=== PATIENT | male | born 1960 | race Caucasian/White ===

== ENCOUNTER 2019-06-04 06:37 | Day surgery (SDC) | payer OTHER ==
[~2019-06-04] VITALS: Ht 182.9 cm; Wt 81.6 kg
[2019-06-04] VITALS (9 sets, daily range): BP systolic 116–129; BP diastolic 71–81
[~2019-06-04 06:37] MED LIST: FLOMAX0.4 MG ORAL; MULTIVITAMINS1 EAC2 ORAL; VITAMIN C500 M1 ORAL
--- NOTE | 2019-06-04 07:45 | Short Stay Surgery H&P ---
History of Present Illness History of Present Illness Chief Complaint Rectal bleeding/abdominal pains/constipations/GERDs and history of colitis HPI Galileo Rodrigues is a 58 year old male who was admitted on for Heartburn, Abdominal Pain/history of colitis and rectal bleeding Patient History Allergies: Coded Allergies: PENICILLINS (Verified Allergy, Severe, 06/04/19) RASH SULFA (SULFONAMIDE ANTIBIOTICS) (Verified Allergy, Severe, 06/03/19) PT WAS HOSPITALIZED-CANNOT REMEMBER REACTION PAST MEDICAL HISTORY: (1) Ulcerative colitis (2) History of knee surgery (3) History of umbilical hernia repair (4) History of inguinal hernia repair Medication History Scheduled Ascorbic Acid* (Vitamin C*), 500 MG ORAL DAILY, (Reported) Multivitamins* (Multivitamins*), 1 TAB ORAL DAILY, (Reported) Tamsulosin HCl (Flomax), 0.8 MG ORAL DAILY, (Reported) Review of Systems Cardiovascular: Reports: no symptoms Respiratory: Reports: no symptoms Skeletal: Reports: trauma Gastrointestinal: Reports: gastro esophageal reflux disease Genitourinary: Reports: BPH Neurologic: Reports: no symptoms Endocrine: Reports: no symptoms Hematologic: Reports: no symptoms Physical Exam Vital Signs Last Vital Signs Date Time Temp Pulse Resp B/P (MAP) Pulse Ox O2 Delivery O2 Flow Rate FiO2 06/04/19 07:13 97.0 49 18 129/80 96 Room Air Skin: normal HENT: normal Heart: normal Lungs: normal Abdomen: abnormal Extremities: normal Genitourinary: normal Plan Plan of Care Upper and lower endoscopy with biopsy. Preop Interventions None. Summary of Findings See the reports. Attestation Are the patient's medical conditions optimized for surgery? Attestation Response: yes Nneka Mckeon MD Jun 04, 2019 07:45
--- NOTE | 2019-06-04 07:46 | Pre-Procedure Note/Attestation ---
Pre-Procedure Note/Attestation Complete Prior to Procedure Planned Procedure: left Procedure Narrative: Examinations of the upper and lower GI. tract with obtaining biopsies. Indications for Procedure Pre-Operative Diagnosis: R/O active colitis/gastriitis/hemorrhoids/tumors of the colon and peptic ulcer Attestation I attest that I discussed the nature of the procedure; its benefits; risks and complications; and alternatives (and the risks and benefits of such alternatives ), prior to the procedure, with the patient (or the patient's legal medical customer service representative). I attest that, if there was a reasonable possibility of needing a blood transfusion, the patient (or the patient's legal medical customer service representative) was given the [place] Department [employer] [facility] standardized written summary, pursuant to the [place] Blood Safety Act ([place] Health and Safety Code # 1645, as amended). I attest that I re-evaluated the patient just prior to the surgery and that there has been no change in the patient's H&P, except as documented below: Nneka Mckeon MD Jun 04, 2019 07:46
[2019-06-04] MEDS ORDERED: Propofol 200mg/20ml IV ONE (08:00)
[2019-06-04] MEDS ORDERED: Lidocaine 1% MPF 10mg/ml 5ml ONE (08:00)
[2019-06-04] MEDS ORDERED: Atropine Sulfate 0.4mg/ml inj ONE (08:00)
[2019-06-04] MEDS ORDERED: LR 1000ml ONE (08:00)
[2019-06-04] MEDS ORDERED: LR 1000ml 1,000 ML IVLG SCH (08:34)
--- NOTE | 2019-06-04 08:36 | Anethesia Preoperative Eval ---
Anesthesia Pre-op PMH/ROS General Date of Evaluation: Jun 04, 2019 Time of Evaluation: 08:05 Anesthesiologist: jean-paul ASA Score: ASA 2 Mallampati Score Class I : Soft palate, uvula, fauces, pillars visible Class II: Soft palate, uvula, fauces visible Class III: Soft palate, base of uvula visible Class IV: Only hard plate visible Mallampati Classification: Class II Surgeon: belén Diagnosis: gerd, abdominal pain Surgical Procedure: egd/colonoscopy Anesthesia History: none Social History: smoking - nonsmoker Family History: no anesthesia problems Allergies: Coded Allergies: PENICILLINS (Verified Allergy, Severe, 06/04/19) RASH SULFA (SULFONAMIDE ANTIBIOTICS) (Verified Allergy, Severe, 06/03/19) PT WAS HOSPITALIZED-CANNOT REMEMBER REACTION Medications: see eMAR Patient NPO?: Yes Past Medical History Pulmonary: Reports: other - bronchitis Gastrointestinal/Genitourinary: Reports: GERD, other - colitis Hematology/Immune: Reports: anemia Anesthesia Pre-op Phys. Exam Physician Exam Last Vital Signs Date Time Temp Pulse Resp B/P (MAP) Pulse Ox O2 Delivery O2 Flow Rate FiO2 06/04/19 07:13 97.0 49 18 129/80 96 Room Air Constitutional: NAD Neurologic: CN 2-12 intact Cardiovascular: RRR Respiratory: CTA Gastrointestinal: S/NT/ND Airway Exam Mallampati Score: Class II MO: full Neck: flexible TMD: 2fb ROM: full Anesthesia Pre-op A/P Risk Assessment & Plan Assessment: asa2 Plan: mac Status Change Before Surgery: No Pre-Antibiotics Drug: Madison Sinclair MD Jun 04, 2019 08:36
--- NOTE | 2019-06-04 08:43 | Endoscopy Procedure Note ---
Endoscopy Procedure Note General Indication for Procedure: Abdominal pain/GERDs/history of colitis and occasional rectal bleeding. Procedures Performed: EGD - mild antral gastritis with mild edema of pyloric channel at 12 o'clock. Biopsies were done from prepyloric area and gastric body. , colonoscopy - Minimal internal hemorrhoids;otherwise complteley normal total colonoscopy upto the cecal base. Multiple biopsies were taken per random from different sections of the colon. No evidence of colitis. Specimen: yes Pt Tolerated Procedure Well: Yes Estimated Blood Loss: none Anesthesia Anesthesiologist: Dr. Maxx Hilton Anesthesia: moderate sedation Medications Medication Given: see anesthesia record Inserted Devices Implant(s) used?: No Quality Quality of Bowel Preparation: Excellent Did scope reach the cecum?: Yes Was there any complications?: No GI Core Measures 50 yrs or older w/o bx or poly: Yes 10yrs. F/U recommended: Yes If not recommended, why?: Med reason:<3 yrs.: System Reason:<3 yrs.: Last colonoscopy >= to 3yrs: Yes Nneka Mckeon MD Jun 04, 2019 08:43
--- NOTE | 2019-06-04 08:44 | Discharge Instructions ---
Discharge Instructions Discharge Instructions Follow up with: Visit the doctor in the office after 2 weeks For Congestive Heart Failure Reminder Report to your physician any weight gain of 5 pounds or more in one week. Nneka Mckeon MD Jun 04, 2019 08:44
[2019-06-04] MEDS ORDERED: DiphenhydrAMINE 50mg/ml Inj IVP PRN (08:45)
[2019-06-04] MEDS ORDERED: Atropine Sulfate 0.4mg/ml inj IVP PRN (08:45)
[2019-06-04] MEDS ORDERED: fentaNYL 100 mcg/2 mL IV PRN (08:45)
[2019-06-04] MEDS ORDERED: Midazolam 2mg/2ml Inj IVP PRN (08:45)
--- NOTE | 2019-06-04 09:40 | Immediate Post-Op Evaluation ---
Immediate Post-Op Evalulation Immediate Post-Op Evalulation Procedure: egd/colonoscopy w/bx Date of Evaluation: Jun 04, 2019 Time of Evaluation: 08:58 IV Fluids: 550ml lr Blood Products: none Estimated Blood Loss: negligible Blood Pressure Systolic: 122 Blood Pressure Diastolic: 81 Pulse Rate: 49 Respiratory Rate: 18 O2 Sat by Pulse Oximetry: 99 Temperature (Fahrenheit): 97.1 Pain Score (1-10): 0 Nausea: No Vomiting: No Complications none Patient Status: awake, reacts, patent Hydration Status: adequate Drug: Madison Sicnlair MD Jun 04, 2019 09:40
--- NOTE | 2019-06-04 09:41 | 48 Hour Post Anesthesia Eval ---
Post Anesthesia Evaluation Procedure: egd/colonoscopy w/bx Date of Evaluation: Jun 04, 2019 Time of Evaluation: 09:00 Blood Pressure Systolic: 119 0: 76 Pulse Rate: 51 Respiratory Rate: 18 Temperature (Fahrenheit): 97.1 O2 Sat by Pulse Oximetry: 99 Airway: patent Nausea: No Vomiting: No Pain Intensity: 0 Hydration Status: adequate Cardiopulmonary Status: stable Mental Status/LOC: patient returned to baseline Post-Anesthesia Complications: none Follow-up care needed: N/A Madison Juarez MD Jun 04, 2019 09:41
--- NOTE | 2019-06-04 09:45 | Pre-op HX & Phy Repo 2 SIG ---
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 The patient basically has been complaining of experiencing discomfort and abdominal pain, which is mostly generalized, but happening over the epigastric area, radiating towards his chest. The severity is moderate in intensity. 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 He also did some administrating work as well. During this period of time, he started to experience some physical abnormalities in different parts of his body including having been diagnosed to have ulcerative colitis in 1987. He also at that time did have diarrhea and cramping symptoms as he was subsequently treated for this condition. However, presently his condition of colitis seems to be quite stable. However, he has been having symptoms of gastroesophageal acid reflux, which is triggered by consumption of some foods such as alcohol. He also has been experiencing pain over his different parts of the body including the ankles. He had the function of a standing and sitting mostly. As mentioned, currently the applicant has been complaining of constant heartburn episodes and has been taking medications such as Pepcid and ranitidine. He also occasionally does have difficulty swallowing consistent with dysphagia. He also reports to me that occasionally takes nonsteroidal anti-inflammatory agents such as ibuprofen for the treatment of his bodily pain located over different parts of the musculoskeletal area. PAST MEDICAL HISTORY: As I mentioned, he has had history of gastroesophageal acid reflux and also ulcerative colitis. Also, he has had varicose veins with eczema and history of skin cancer, which was removed. PAST SURGICAL HISTORY: He has had surgeries for the conditions of the left knee and right inguinal hernia and repairing of umbilical hernia as well. FAMILY HISTORY: Nonsignificant except that his father had high blood pressure and arthritis. Applicant is with normal children. HABITS: Occasionally, he drinks alcohol, but does not smoke cigarettes and does not use illicit drugs. PRESENT MEDICATIONS: Protonix 20 mg daily, Flomax 0.4 mg, and also ranitidine 150 mg with occasional Pepcid. REVIEW OF SYSTEMS: Basically history of present illness. PHYSICAL EXAMINATION: GENERAL: At this time, reveals alert, oriented, very pleasant gentleman, does not seem to be any acute distress. VITAL SIGNS: Blood pressure 129/80, respiratory rate is 18 with pulse rate 49, temperature 97, and oxygen saturation 96%. HEENT: Normocephalic. Pupils equal in size and reactive to light and accommodation. No visible jaundice. Buccal cavity, tongue midline, well hydrated. No ulcers. NECK: Supple. No JVD, thyromegaly, or adenopathy. CHEST: Clear to auscultation and percussion. No rales or rhonchi. HEART: S1, S2 normal. Regular rhythm. No gallops or murmur. ABDOMEN: Soft, but tender mostly generally, but located over the epigastric area at this time. EXTREMITIES: Within normal limits. CENTRAL NERVOUS SYSTEM: Grossly normal. SKIN: Normal. LYMPHATICS: Normal. INITIAL PREOPERATIVE IMPRESSION: 1. Abdominal pain mostly consistent with epigastric pain secondary to gastroesophageal acid reflux, rule out underlying Ritter's mucosa, hiatal hernia, gastritis, peptic ulcer disease, NSAID-induced gastropathy. 2. History of ulcerative colitis, stable at this time, rule out the status. 3. Possible underlying irritable bowel syndrome. 4. History of skin cancer, stable. 5. History of eczema, stable. RECOMMENDATION: The applicant seems to be stable at this time to undergo the procedure of upper and lower GI endoscopic examination for which he has been scheduled. He understands the risks and benefits and will sign the consent. Said Alexandra Mckeon DR: RUCHI JOB#: [id number] CC:
--- NOTE | 2019-06-04 10:45 | Operative Note - Dictated ---
DATE OF OPERATION: 06/04/2019 SURGEON: Nneka Mckeon M.D. PROCEDURE: Total colonoscopy with multiple biopsies. PREOPERATIVE DIAGNOSIS: Constipation, history of colitis, and occasional rectal bleeding. POSTOPERATIVE DIAGNOSIS: Completely normal total colonoscopy with evidence of minimal internal hemorrhoid of no great significance and non-bleeder. No evidence of colitis noted. Multiple biopsies were taken from different sections of the colon. MEDICATIONS USED: Per Dr. Ahuja. INSTRUMENT: GIF Olympus video colonoscope. DESCRIPTION OF PROCEDURE: The patient after arriving endoscopy unit, was told about risks and benefits of the procedure, which he accepted and signed informed consent. At this time, he was put in the left lateral decubitus position. After adequate IV sedation, the scope was gently passed through the anal area, which revealed evidence of very minimal internal hemorrhoid without any importance and there was no evidence of bleeding. The retroflexion maneuver was applied here. Also, which basically revealed no other pathologies in the whole rectum, was also looked completely normal. At this time, the scope was gradually passed through the colon and areas of the rectosigmoid angle, descending colon, splenic flexure, transverse colon, hepatic flexure, and finally was guided into the right colon all the way to the base of the cecum. All these areas remained and seemed to be completely normal without any evidence of pathology such as colitis, tumors, polyps, etc. The colon cleanup was adequate and excellent. At this point, after reaching to the base of the cecum, within 6 minutes the scope was gradually pulled out and the procedure was terminated. The patient tolerated the procedure well and left the endoscopy room in a good condition. Nneka Mckeon M.D. DR: RUCHI JOB#: [id number] CC:
--- NOTE | 2019-06-04 11:00 | Operative Note - Dictated ---
DATE OF OPERATION: 06/04/2019 SURGEON: Nneka Mckeon M.D. PROCEDURE: Esophagogastroduodenoscopy with biopsy. PREOPERATIVE DIAGNOSIS: History of chronic gastroesophageal reflux, rule out NSAID-induced gastropathy, peptic ulcer disease, Ritter's mucosa or hiatal hernia. POSTOPERATIVE DIAGNOSIS: Mild antral gastritis with edema of the prepyloric area and edema of the pyloric channel at 12 o'clock. Biopsies were taken from prepyloric section and mid gastric body. MEDICATION USED: Per Dr. Ahuja. INSTRUMENT: GIF Olympus upper GI video endoscope. DESCRIPTION OF PROCEDURE: The patient after arriving endoscopy unit, was told about risks and benefits of the procedure, which he accepted and signed informed consent. At this time, he was put on the left lateral decubitus position. After adequate IV sedation, the scope was gently passed through the cricopharyngeal area, was lodged into the upper esophagus and gradually was advanced towards gastroesophageal junction. The entire length of the esophagus looked normal without any pathology. No varices, inflammatory process, stricture, tumors, polyps, etc. was found. The GE junction also looked completely normal without any evidence of hiatal hernia or Ritter's mucosa. At this time, the scope was advanced into the stomach and gastric cavity was distended with insufflation of air. Gradually, the areas of the fundus and the body and antrum were examined. Basically, there was mild edema of the prepyloric section consistent with antral gastritis and edema of pyloric channel at 12 o'clock. However, there was no ulcers, tumors, polyps, bleeding site, hemangioma, etc. A retroflexion maneuver was also applied and the area of the gastroesophageal junction was examined in a closer fashion, which revealed completely normal. At this time, one random biopsy from gastric body and the other one from prepyloric area was obtained and subsequently the scope was passed through the pylorus. First and second portion of duodenum were found to be completely normal. At this time, the scope was pulled out and procedure was terminated. The patient tolerated the procedure well. Nneka Mckeon M.D. DR: /IWONA JOB#: [id number] CC:
== END 2019-06-04 09:45 | disposition home or self-care (01) ==
LOC: GAS 06:37
DX: K29.50 Unspecified chronic gastritis without bleeding (principal); K21.9 Gastro-esophageal reflux disease without esophagitis; K59.00 Constipation, unspecified; K62.5 Hemorrhage of anus and rectum; K64.8 Other hemorrhoids; Z85.828 Personal history of other malignant neoplasm of skin; K51.90 Ulcerative colitis, unspecified, without complications; Z79.899 Other long term (current) drug therapy; Z88.0 Allergy status to penicillin; Z88.2 Allergy status to sulfonamides; N40.0 Benign prostatic hyperplasia without lower urinary tract symptoms
CPT/HCPCS: 43239; 45380; J0461; J2704; 94003; 94150